=== PATIENT | female | born 1945 | race Caucasian/White ===

== ENCOUNTER 2017-03-20 11:56 | Day surgery (SDC) | payer MEDICARE ==
[2017-03-20] MEDS ORDERED: CEFAZOLIN/Water 2 GM/20 ML SYRINGE ONE (16:30)
[2017-03-20] MEDS ORDERED: Bacitracin Zinc Ointment 30 gm TUBE ONE (17:48)
[2017-03-20] MEDS ORDERED: Sodium Chloride 0.9% 10 ML ONE (17:48)
[2017-03-20] MEDS ORDERED: Bupivacaine PF 0.5% 30 ML VIAL ONE (17:48)
[2017-03-20] MEDS ORDERED: Fentanyl 100 MCG/2 ML VIAL ONE ×2 (17:56→20:23)
[2017-03-20] MEDS ORDERED: Midazolam HCl 2 mg/2 ml Vial ONE (17:56)
[2017-03-20] MEDS ORDERED: Lidocaine 2% PF 10 ML AMP (For Epidural Use) ONE (18:28)
[2017-03-20] MEDS ORDERED: Propofol 200 MG/20 ML VIAL ONE (18:28)
[2017-03-20] MEDS ORDERED: Betamet Acet/Betamet Na Ph 30 MG/5 ML VIAL ONE (18:31)
--- NOTE | 2017-03-22 07:31 | OP ---
DATE OF PROCEDURE: 03/20/2017 PREOPERATIVE DIAGNOSIS: Left carpal tunnel syndrome. POSTOPERATIVE DIAGNOSIS: Left carpal tunnel syndrome. FINDINGS: Very tight transcarpal ligament without hourglass formation, stiffness, or tenosynovitis a nd flexor tendons. PROCEDURE PERFORMED: 1. Carpal tunnel release, left median nerve neuroplasty at the wrist. 2. Application of Celestone drip technique and performed a carpal tunnel injection, 3 mL. ANESTHESIA: General LMA technique by [place] anesthesia augmented about 10 mL 0.5% Marcaine block. Incision around the carpal tunnel release side. Once this was done, prepped and draped in a , and the limb was exsanguinated, tourniquet inflated to 250 mmHg pressure. We made outlined incision around the ring finger and ending at approximately Fortune's cardinal line distally as well as the vol ar wrist. DESCRIPTION OF PROCEDURE: After successful general LMA technique, the limb was prepped and draped. The limb was exsanguinated, tourniquet inflated to 250 mmHg pressure. A timeout was confirmed. The incision was carried as outlined through the skin and subcutaneous tissue, never more proximal th an 5 mm distal to volar wrist flexion crease. We saw the transcarpal ligament and protected all the neurovascular structures medially and laterally. We then visualized the transcarpal ligament, opened it in its midportion and from here proximally opened it with a combination of [place] blade and a cot ton roll blade. The patient then had the incision extended along the transcarpal ligament from the m idportion proximally under direct visualization again using the combination of a [place] blade and a t enotomy scissors. There was excellent freedom around the nerve, which had only a minimal amount of s tippling and mild allograft formation. Celestone was then dripped 3 mL over this area where the nerv e showed changes, the motor branch was intact as well all the other branches, and the tourniquet was deflated. Hemostasis obtained. The wound was then closed with interrupted 4-0 nylon in mattress pat tern and then a bulky dressing was applied only.
== END 2017-03-21 21:30 | disposition home or self-care (01) ==
LOC: SDC 11:56
PROVIDERS: ATTEND Orthopaedic Surgery Hand Surgery
PROC: 01N50ZZ Release Median Nerve, Open Approach (ICD-10-PCS; principal; 2017-03-20)
PROC: 3E0T33Z Introduction of Anti-inflammatory into Peripheral Nerves and Plexi, Percutaneous Approach (ICD-10-PCS; 2017-03-20)
DX: G56.02 Carpal tunnel syndrome, left upper limb (principal); M24.50 Contracture, unspecified joint; I10 Essential (primary) hypertension; R42 Dizziness and giddiness; M19.90 Unspecified osteoarthritis, unspecified site; G43.909 Migraine, unspecified, not intractable, without status migrainosus; J98.6 Disorders of diaphragm; F41.9 Anxiety disorder, unspecified; Z79.899 Other long term (current) drug therapy; Z99.81 Dependence on supplemental oxygen; Z88.5 Allergy status to narcotic agent; Z88.2 Allergy status to sulfonamides; Z88.8 Allergy status to other drugs, medicaments and biological substances; Z98.1 Arthrodesis status; Z96.653 Presence of artificial knee joint, bilateral; Z96.1 Presence of intraocular lens; Z90.49 Acquired absence of other specified parts of digestive tract; Z90.710 Acquired absence of both cervix and uterus; Z98.890 Other specified postprocedural states
CPT/HCPCS: 96374; A4216; J0702; J2001; J2250; J2704; J3010; J3490; S0020

== ENCOUNTER 2018-04-22 09:31 | Outpatient (CLI) | payer MEDICARE ==
--- NOTE | 2018-04-22 14:59 | CT ---
CT ABDOMEN AND PELVIS WITH IV CONTRAST: Technique: Multiple contiguous axial images were obtained through the abdomen and pelvis with IV enha ncement. Oral contrast was administered. Indications: Abdominal pain. Epigastric pain. Nausea. Vomiting. Diarrhea. Comparison: CT abdomen/pelvis 08-01-16. FINDINGS: Images through the lung bases again reveal numerous tiny pulmonary nodules. This has been described p reviously and appears stable. Liver, spleen, and pancreas unremarkable. Patient is post cholecystectomy. Bowel ducts appear normal. There is a fixed diaphragmatic hernia with portion of the stomach above the diaphragm. Bilateral adrenal nodules have been previously described in this patient. These appear stable and hav e been described on the prior exam as stable from 2015. Kidneys unremarkable. Tiny low density foci in both kidneys are subcentimeter and too small to charac terize, most likely tiny cortical cysts. Urinary bladder unremarkable. Small bowel loops are normal caliber and appear unremarkable. Colon unr emarkable. Scattered diverticula in the sigmoid and evidence of mild mural thickening in the sigmoid. This should be evaluated with elective colonoscopy. Aorta normal caliber with atherosclerotic change. No evidence of adenopathy. Osseous structures unremrakble with degenerative spine change. IMPRESSION: 1. Moderate sized fixed diaphragmatic hernia with portion of stomach above the diaphragm. This is sli ghtly larger than on 08-01-16 and probable relates to patient's epigastric pain. 2. Bilateral adrenal nodules remain stable. 3. Numerous tiny low density foci in the kidneys, probably cysts but too small to characterize. 4. Scattered diverticula in the sigmoid and evidence of mild mural thickening in the sigmoid. Recomme nd elective colonoscopy. POS: [facility]
== END 2018-04-22 09:32 | disposition home or self-care (01) ==
LOC: BICCT 09:31
PROVIDERS: ATTEND Internal Medicine Gastroenterology
DX: R10.84 Generalized abdominal pain (principal); R10.13 Epigastric pain; R11.2 Nausea with vomiting, unspecified; R19.7 Diarrhea, unspecified; K44.9 Diaphragmatic hernia without obstruction or gangrene; E27.9 Disorder of adrenal gland, unspecified; R93.421 Abnormal radiologic findings on diagnostic imaging of right kidney; R93.422 Abnormal radiologic findings on diagnostic imaging of left kidney; K57.30 Diverticulosis of large intestine without perforation or abscess without bleeding; K63.89 Other specified diseases of intestine
CPT/HCPCS: 74177

== ENCOUNTER 2018-04-26 12:43 | Day surgery (SDC) | payer MEDICARE ==
[2018-04-25 13:38] VITALS: BMI 34.3
[~2018-04-26 12:43] MED LIST: PROPOFOL 200 MG/20 ML VIAL ONE
--- NOTE | 2018-04-26 20:55 | OP ---
DATE OF PROCEDURE: 04/26/2018 PROCEDURE PERFORMED: Esophagogastroduodenoscopy with biopsy. PREMEDICATION GIVEN: Given by Anesthesiology Department. PREPROCEDURE DIAGNOSES: 1. Persistent epigastric pain. 2. Gastroesophageal reflux disease. 3. Negative CT except for fixed hiatal hernia. POSTPROCEDURE DIAGNOSES: 1. Fixed hiatal hernia. 2. Moderate antral erythema. 3. Otherwise normal upper endoscopy. DESCRIPTION OF PROCEDURE: Written consents were obtained prior to procedure. After adequate sedation, forward viewing endoscope was advanced down the stomach under direct vision to the second portion of duodenum. Both the second portion and the bulb appeared normal. Pylorus was patent. The gastric antrum, body, fundus, and cardia appeared normal. There was a focal area of diffuse antral erythema noted. Biopsies obtained for H. pylori. Retroflexion showed a fixed hiatal hernia with measuring approximately 6 cm. Gastric fold narrowing was seen at 35 cm. GE junction with Z-line noted at 30 cm. There were some retained gastric contents noted in the hiatal hernia sac. The esophagus was visualized with mucosa appeared normal. The patient tolerated the procedure well. ASSESSMENT: 1. Fixed hiatal hernia. 2. Antral erythema, otherwise normal upper endoscopy. PLAN: 1. Await biopsy results. 2. We will discuss with the patient about surgical correction of her hiatal hernia. Job ID: [id number]
== END 2018-04-26 14:42 | disposition home or self-care (01) ==
LOC: SDC 12:43
PROVIDERS: ATTEND Internal Medicine Gastroenterology
PROC: 0DB68ZZ Excision of Stomach, Via Natural or Artificial Opening Endoscopic (ICD-10-PCS; principal; 2018-04-26)
DX: K29.50 Unspecified chronic gastritis without bleeding (principal); K21.9 Gastro-esophageal reflux disease without esophagitis; K44.9 Diaphragmatic hernia without obstruction or gangrene
CPT/HCPCS: 88305; 88312; J2704

== ENCOUNTER 2018-07-08 12:46 | Outpatient (CLI) | payer MEDICARE ==
--- NOTE | 2018-07-08 14:36 | MRI ---
MRI CERVICAL SPINE WITHOUT CONTRAST: Date: 07/08/18 HISTORY: M54.12 cervical radiculopathy. COMPARISON: CT cervical spine from 2015. FINDINGS: Cerebellar tonsils are at the level of the foramen magnum. Cord signal is normal. There is ACDF hardw are at C4-C6. No cervical adenopathy. Paraspinal musculature is symmetric. No marrow infiltrative pro cess. Levels are as follows: C2-3: Mild disc desiccation. No neural foraminal or spinal canal narrowing. C3-4: Some broad based posterior disc osteophyte complex. There is moderate ligamentum flavum hypert rophy. Narrowing of the ventral CSF space. Spinal canal measures approximately 7.0 mm. Moderate right and mild left facet arthrosis. There is moderate left and mild right-sided neural foraminal narrowing. C4-5: Prior diskectomy. There is a broad based posterior osteophyte narrowing the ventral CSF space. No significant neural foraminal narrowing. The spinal canal measures approximately 9.0 mm. C5-6: There is a broad based central osteophyte with narrowing of the ventral CSF space. Spinal artur l measures approximately 8.0 mm. Moderate to severe left and moderate right-sided neural foraminal na rrowing. C6-7: Broad based posterior osteophyte. There is narrowing of the spinal canal to approximately 7.0 mm. Moderate left and right-sided neural foraminal narrowing. IMPRESSION: Multilevel spondylosis, worst at C5-6 and C6-7 due to posterior osteophytes. POS: [facility]
== END 2018-07-08 12:47 | disposition home or self-care (01) ==
LOC: BICMRI 12:46
PROVIDERS: ATTEND Nurse Practitioner Family
DX: M47.22 Other spondylosis with radiculopathy, cervical region (principal); M25.78 Osteophyte, vertebrae
CPT/HCPCS: 72141

== ENCOUNTER → 2018-08-15 | Day surgery (SDC) | payer MEDICARE | LOC: ENDO/OP 07:38 | PROVIDERS: ATTEND Surgery | DX: K44.9 Diaphragmatic hernia without obstruction or gangrene (principal); K21.9 Gastro-esophageal reflux disease without esophagitis; I10 Essential (primary) hypertension; Z88.5 Allergy status to narcotic agent; Z88.8 Allergy status to other drugs, medicaments and biological substances; Z79.899 Other long term (current) drug therapy | CPT/HCPCS: 91010 ==

== ENCOUNTER 2018-09-05 11:18 | Outpatient (CLI) | payer MEDICARE ==
[2018-09-05 13:30] LABS: #Basophils 0.1 thou/uL (0.0-0.2); #Eosinphils 0.1 thou/uL (0.0-0.7); #Lymphocytes 1.8 thou/uL (1.20-3.40); #Monocytes 0.4 thou/uL (0.11-0.59); #Neutrophils 2.3 thou/uL (1.40-6.50); %Basophils 1.1 % (0.0-1.0); %Eosinophils 2.7 % (0.0-10.0); %Lymphocytes 38.9 % (21.0-51.0); %Monocytes 7.9 % (0.0-10.0); %Neutrophils 49.3 % (42.0-75.0); Hemoglobin 13.7 g/dL (12.0-16.0); Mean Corpuscular HGB CONC 30.7 g/dL (32.0-36.0); Mean Corpuscular Hemoglobin 29.4 pg (27.0-31.0); Mean Corpuscular Volume 95.7 fL (78.0-98.0); Mean Platelet Volume 9.1 fL (7.4-10.4); Platelet Count 133 thou/uL (130-400); RBC Distribution Width 12.8 % (11.5-14.5); Red Blood Cell (RBC) Count 4.66 mill/uL (4.20-5.40); White Blood Cell (WBC) Count 4.7 thou/uL (4.8-10.8)
[2018-09-05 14:02] LABS: ALT (SGPT) 12 U/L (8-55); AST (SGOT) 15 U/L (5-34); Albumin 3.9 g/dL (3.4-4.8); Alkaline Phosphatase 67 U/L (40-150); Anion Gap 8 mmol/L (10-20); BUN (Urea Nitrogen) 13 mg/dL (9.8-20.1); Bilirubin, Total 0.3 mg/dL (0.2-1.2); Calc. Creatinine Clearance 0 mL/min (70-130); Calcium 10.3 mg/dL (7.8-10.44); Carbon Dioxide 34 mmol/L (23-31); Chloride 101 mmol/L (98-107); Estimated GFR-MDRD 82; Globulin 3.3 g/dL (2.4-3.5); Glucose 81 mg/dL (83-110); Potassium 3.7 mmol/L (3.5-5.1); Protein, Total 7.2 g/dL (6.0-8.3); Sodium 139 mmol/L (136-145)
== END 2018-09-05 11:19 | disposition home or self-care (01) ==
LOC: LABBT 11:18
PROVIDERS: ATTEND Surgery
DX: Z01.818 Encounter for other preprocedural examination (principal); K44.9 Diaphragmatic hernia without obstruction or gangrene
CPT/HCPCS: 80053; 85025; 93005; 93010

== ENCOUNTER 2018-09-11 08:57 | Inpatient (IN) | payer MEDICARE ==
[2018-09-05 11:53] VITALS: BMI 32.9
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
[2018-09-11] MEDS ORDERED: Lidocaine 2% Jelly 5 ML TUBE ONE (10:48)
[2018-09-11] MEDS ORDERED: Fentanyl 100 MCG/2 ML VIAL ONE ×4 (10:48→15:22)
[2018-09-11] MEDS ORDERED: Bupivacaine/Epinephrine 0.25% 30 ML VIAL ONE (10:55)
[2018-09-11] MEDS ORDERED: hydrALAZINE 20 MG/ML VIAL SLOW IVP PRN (14:00)
[2018-09-11] MEDS ORDERED: Hydrocodone-Acetamin 15 ML UDCUP PO PRN (14:00)
[2018-09-11] MEDS ORDERED: Promethazine HCl 25 MG/ML VIAL IM PRN ×3 (14:00→15:04)
[2018-09-11] MEDS ORDERED: Dextrose 50% Abboject 50 ML SYRINGE SLOW IVP PRN (14:00)
[2018-09-11] MEDS ORDERED: Ondansetron PF 4 MG/2 ML Vial IVP PRN ×2 (14:00→15:04)
[2018-09-11] MEDS ORDERED: Dextrose 5% in Water 1,000 ML IV PRN (14:00)
[2018-09-11] MEDS ORDERED: diphenhydrAMINE 50 MG/ML VIAL IVP PRN ×2 (14:00→15:04)
[2018-09-11] MEDS ORDERED: Ondansetron HCl/PF 4 MG/2 ML Vial IVP PRN (14:07)
[2018-09-11] MEDS ORDERED: Promethazine HCl 25 MG/ML VIAL SLOW IVP PRN (14:07)
[2018-09-11] MEDS ORDERED: Sodium Chloride 0.9% (PF) 10 ML VIAL FS PRN (14:30)
[2018-09-11] MEDS ORDERED: Promethazine HCl 25 MG/ML VIAL ONE (14:38)
[2018-09-11] MEDS ORDERED: diphenhydrAMINE 50 MG/ML VIAL IM PRN (15:04)
[2018-09-11] MEDS ORDERED: diphenhydrAMINE 25 MG CAP PO PRN (15:04)
[2018-09-11] MEDS ORDERED: fentaNYL Citrate/PF 2,000 MCG in Sodium Chloride 0.9% 60 ML IV PRN (15:04)
[2018-09-11] MEDS ORDERED: Naloxone HCl 0.4 mg/ml Vial IV PRN (15:04)
[2018-09-11] MEDS ORDERED: Zolpidem Tartrate 5 MG TAB PO PRN (15:04)
[2018-09-11] MEDS ORDERED: Communication Order-Pharmacy FS SCH (15:15)
[2018-09-11] MEDS ORDERED: ePHEDrine 50 MG/ML VIAL ONE (16:22)
[2018-09-11] MEDS ORDERED: Succinylcholine Chloride 20 MG/ML 10 ml SYRINGE FS ONE (16:22)
[2018-09-11] MEDS ORDERED: Lidocaine 1% PF 5 ML VIAL ONE (16:22)
[2018-09-11] MEDS ORDERED: Dexamethasone 20 MG/5 ML VIAL ONE (16:22)
[2018-09-11] MEDS ORDERED: PHENYLEPHRINE-NS 100 MCG/ML 10 ML SYRINGE ONE (16:22)
[2018-09-11] MEDS ORDERED: Ondansetron PF 4 MG/2 ML Vial ONE (16:22)
[2018-09-11] MEDS ORDERED: Glycopyrrolate 0.2 MG/ML 5 ML SYRINGE ONE (16:22)
[2018-09-11] MEDS ORDERED: Rocuronium Bromide 10 MG/ML (10ML VIAL) ONE (16:22)
[2018-09-11] MEDS ORDERED: PROPOFOL 200 MG/20 ML VIAL ONE (16:22)
[2018-09-11] MEDS: D5 1/2 NS w/20 mEq KCL 1,000 ML IV SCH ×2 (17:12→21:32)
[2018-09-11] MEDS: CEFAZOLIN 2 GM in Premix Bag 1 BAG IVPB SCH (17:12)
[2018-09-11] MEDS ORDERED: Sodium Chloride 0.9% 500 ML IVPB SCH (19:00)
[2018-09-11 19:33] LABS: #Basophils 0.1 thou/uL (0.0-0.2); #Lymphocytes 0.6 thou/uL (1.20-3.40); #Monocytes 0.7 thou/uL (0.11-0.59); #Neutrophils 14.1 thou/uL (1.40-6.50); %Basophils 0.5 % (0.0-1.0); %Eosinophils 0.1 % (0.0-10.0); %Lymphocytes 3.7 % (21.0-51.0); %Monocytes 4.7 % (0.0-10.0); %Neutrophils 91.1 % (42.0-75.0); Hemoglobin 13.8 g/dL (12.0-16.0); Mean Corpuscular HGB CONC 31.3 g/dL (32.0-36.0); Mean Corpuscular Volume 99.1 fL (78.0-98.0); Mean Platelet Volume 9.5 fL (7.4-10.4); Platelet Count 120 thou/uL (130-400); RBC Distribution Width 12.6 % (11.5-14.5); Red Blood Cell (RBC) Count 4.44 mill/uL (4.20-5.40); White Blood Cell (WBC) Count 15.4 thou/uL (4.8-10.8)
--- NOTE | 2018-09-11 20:11 | PRG ---
DATE OF SERVICE: 09/11/2018 SUBJECTIVE: Called to see the patient for tachycardia. She was up around 116, which is new for her. The patient states that she is having excruciating back pain. She has chronic back pain. She sees Pain Management for. She has some mild nausea, no vomiting. OBJECTIVE: VITAL SIGNS: Blood pressure is 125/69. GENERAL: She is fairly lethargic. ABDOMEN: Soft, nondistended. PLAN: We did an EKG and it showed it was sinus tach. We will get a hospitalist consult and check H and H. Job ID: [id number]
[2018-09-12] MEDS: CEFAZOLIN 2 GM in Premix Bag 1 BAG IVPB SCH (02:17)
[2018-09-12 06:10] LABS: #Lymphocytes 1.1 thou/uL (1.20-3.40); #Monocytes 1.1 thou/uL (0.11-0.59); #Neutrophils 11.7 thou/uL (1.40-6.50); %Eosinophils 0.3 % (0.0-10.0); %Lymphocytes 7.6 % (21.0-51.0); %Monocytes 7.8 % (0.0-10.0); %Neutrophils 84.4 % (42.0-75.0); Hemoglobin 13.7 g/dL (12.0-16.0); Mean Corpuscular HGB CONC 31.8 g/dL (32.0-36.0); Mean Corpuscular Hemoglobin 30.7 pg (27.0-31.0); Mean Corpuscular Volume 96.5 fL (78.0-98.0); Mean Platelet Volume 9.1 fL (7.4-10.4); Platelet Count 113 thou/uL (130-400); RBC Distribution Width 12.6 % (11.5-14.5); Red Blood Cell (RBC) Count 4.48 mill/uL (4.20-5.40); White Blood Cell (WBC) Count 13.8 thou/uL (4.8-10.8)
[2018-09-12 06:27] LABS: Anion Gap 14 mmol/L (10-20); BUN (Urea Nitrogen) 9 mg/dL (9.8-20.1); Calc. Creatinine Clearance 86 mL/min (70-130); Calcium 9.1 mg/dL (7.8-10.44); Carbon Dioxide 26 mmol/L (23-31); Chloride 103 mmol/L (98-107); Estimated GFR-MDRD 87; Glucose 138 mg/dL (83-110); Potassium 3.9 mmol/L (3.5-5.1); Sodium 139 mmol/L (136-145)
[2018-09-12] MEDS: D5 1/2 NS w/20 mEq KCL 1,000 ML IV SCH ×2 (07:42→13:16)
--- NOTE | 2018-09-12 08:59 | RAD ---
Exam: 15 mL Gastrografin swallow HISTORY: Status post gastric bypass, vertical sleeve. COMPARISON: None FINDINGS: Patient was administered 15 cc of Gastrografin which passes without delay from the esophagu s into the stomach. Postprocedure supine and upright radiographs do not demonstrate any leak or extravasation. Contrast opacifies the proximal small bowel. IMPRESSION: No leak or extravasation.
[2018-09-12] MEDS ORDERED: Pantoprazole 40 MG VIAL IVP SCH (09:00)
[2018-09-12] MEDS ORDERED: Enoxaparin Sodium 30 MG/0.3 ML SYRINGE SC SCH (09:00)
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
[2018-09-12] MEDS: Hydrocodone-Acetamin 15 ML UDCUP PO PRN ×2 (10:47→14:18)
--- NOTE | 2018-09-12 11:46 | PDOC.FPRHP ---
- Allergies/Adverse Reactions Allergies Allergy/AdvReac Type Severity Reaction Status Date / Time pregabalin [From Lyrica] Allergy Verified 09/05/18 11:55 Tqyuwrd-Rvn-Dos Reductase Allergy Verified 09/05/18 11:55 Inhibitor - Home Medications Medication Instructions Recorded Confirmed Type Calcium Carb/Vit D3/Minerals 600 mg PO BID 10/21/13 09/05/18 History [Calcium 1,200 mg Chewable Tablet] Cholecalciferol (Vitamin D3) 2,000 unit PO DAILY 10/21/13 09/05/18 History [Vitamin D3] Dicyclomine HCl 20 mg PO TID 10/21/13 09/05/18 History Pantoprazole Sodium 1 tab PO BID 10/21/13 09/05/18 History Fish Oil 1,000 mg PO BID 06/17/14 09/05/18 History Gabapentin 1 tab PO TID 05/25/16 09/05/18 History FLUoxetine HCl [Fluoxetine HCl] 10 mg PO ASDIR PRN 04/25/18 09/11/18 History Losartan Potassium [Cozaar] 50 mg PO HS 04/25/18 09/05/18 History Primidone 0.5 tab PO BID 04/25/18 09/05/18 History traZODone HCl [Desyrel] 50 mg PO HS 04/25/18 09/05/18 History Imipramine HCl 1 tab PO HS 09/05/18 09/05/18 History - History PMHx: PSHx: FHx: Social: - Vital signs BP: [] HR: [] RR: [] Tmax: [] Pox: []% on [] Wt: [] FMR H&P: Results - Labs Result Diagrams: 09/12/18 05:53 09/12/18 05:53 Lab results: WBC 13.8 thou/uL (4.8-10.8) H 09/12/18 05:53 Hgb 13.7 g/dL (12.0-16.0) 09/12/18 05:53 Hct 43.2 % (36.0-47.0) 09/12/18 05:53 MCV 96.5 fL (78.0-98.0) 09/12/18 05:53 Plt Count 113 thou/uL (130-400) L 09/12/18 05:53 Neutrophils % 84.4 % (42.0-75.0) H 09/12/18 05:53 Sodium 139 mmol/L (136-145) 09/12/18 05:53 Potassium 3.9 mmol/L (3.5-5.1) 09/12/18 05:53 Chloride 103 mmol/L (98-107) 09/12/18 05:53 Carbon Dioxide 26 mmol/L (23-31) 09/12/18 05:53 BUN 9 mg/dL (9.8-20.1) L 09/12/18 05:53 Creatinine 0.66 mg/dL (0.6-1.1) 09/12/18 05:53 Glucose 138 mg/dL (83-110) H 09/12/18 05:53 Calcium 9.1 mg/dL (7.8-10.44) 09/12/18 05:53 FMR H&P: Upper Level - Plan Date/Time: 09/12/18 1144 I, [], have evaluated this patient and agree with findings/plan as outlined by compensation intern resident. Pertinent changes/additions are listed here.
[2018-09-12] MEDS ORDERED: FLUoxetine HCl 10 MG CAP PO PRN (11:48)
[2018-09-12] MEDS ORDERED: Gabapentin 300 MG CAP PO SCH (15:00)
[2018-09-12] MEDS ORDERED: Dicyclomine 20 MG TAB PO SCH (15:00)
[2018-09-12 16:23] VITALS: BP 120/51; TEMP 98.1
--- NOTE | 2018-09-12 17:10 | CON ---
DATE OF CONSULTATION: 09/12/2018 CONSULTING PROVIDER: Jose Bucio MD, General Surgery. REASON FOR CONSULTATION: Medical management. HISTORY OF PRESENT ILLNESS: The patient is a 73-year-old female, who is postop day 1 status post Bladimir fundoplication for hiatal hernia. The patient currently reports she has episodic pain; however, it is fairly well controlled. She has a past medical history significant for hypertension, depression, insomnia, and she recently had an echo by her cash applications clerk, Dr. William; however, the results of this are unknown. She is on spironolactone and hydrochlorothiazide, which would presume to be for blood pressure versus diastolic failure; however, she is unaware of any cardiomyopathy in the past. Otherwise, she does see Pain Management for chronic neck pain and back pain. 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 She currently denies any chest pain, shortness of breath, nausea, vomiting, diarrhea, or constipation. She is tolerating clear liquids per General Surgery's diet and recommendation and is otherwise feeling okay. REVIEW OF SYSTEMS: GENERAL: The patient denies fever or chills. ENT: No rhinorrhea or congestion. RESPIRATORY: No cough, congestion, or shortness of breath. CARDIOVASCULAR: No chest pain, palpitations, or increasing edema. GI: The patient reports some occasional abdominal pain. She is status post Bladimir fundoplication. Denies nausea or vomiting. Tolerating p.o. SKIN: No rashes, lesions. MUSCULOSKELETAL: The patient denies pain, tenderness, or swelling. NEUROLOGIC: The patient denies numbness or weakness. PHYSICAL EXAMINATION: VITAL SIGNS: The patient is afebrile. Temperature is 97.7, pulse is 87, respiratory rate is 18, pulse ox is 95% on 3 L nasal cannula, blood pressure is 135/77. CONSTITUTIONAL: The patient is in no acute distress. She is resting comfortably in bed. HEENT: Normocephalic, atraumatic. Pupils equal, round, reactive to light and accommodation. Extraocular muscles intact. NECK: Supple. Trachea midline. No JVD. No lymphadenopathy. CHEST: Equal rise and fall. No paradoxical breathing. HEART: Regular rate and rhythm. Normal S1, S2. No murmurs, rubs, or gallops. LUNGS: Clear to auscultation bilaterally. No respiratory distress. The patient has good air movement. No wheezing, rales, or rhonchi present. ABDOMEN: Soft. Diffusely mildly tender to palpation. No rebound, guarding, or rigidity. NEUROLOGIC: The patient has grossly normal range of motion. The patient has no focal deficit. LABORATORY RESULTS: The patient had a CBC and a BMP drawn today. The CBC was significant for white blood cell count of 13.8; however, she is postop day 1. This is likely secondary to that. Her platelets are 113. Basic metabolic profile was unremarkable. She did have a glucose of 138. Her BUN is 9 and creatinine is 0.66 with an estimated GFR of 87. The patient had an upper GI series this morning without contrast, which showed no leak or extravasation status post Bladimir fundoplication. 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 1. Status post Bladimir fundoplication, managed per Surgery's recommendations. Pain control per Surgery. 2. Hypertension. If the patient is on losartan at home as well as hydrochlorothiazide and spironolactone, we will verify spironolactone and thiazide dosage, we will resume the bp medication once verified and BP stable. 3. History of depression. Continue at bedtime trazodone and daily fluoxetine. 4. History of gastroesophageal reflux disease. Continue Protonix 40 mg daily. 5. Right hemidiaphragm paralysis. Continue O2 supplementation p.r.n. Consider incentive spirometry and early ambulation. Thank you for this consultation. We will continue to follow the patient while she remains in the hospital. Job ID: [id number] I personally saw and exmined the patient on 09/12/18 and discussed with patient with Dr Carrion. I agree with the History, Physical, assessment and plan. KINJAL
[2018-09-12] MEDS ORDERED: traZODone HCl 50 MG TAB PO SCH (21:00)
[2018-09-12] MEDS ORDERED: Primidone 250 MG TAB PO SCH (21:00)
[2018-09-12] MEDS ORDERED: Calcium Carbonate + Vit D 1 TAB PO SCH (21:00)
[2018-09-12] MEDS ORDERED: Fish Oil 1,000 MG CAP PO SCH (21:00)
--- NOTE | 2018-09-13 10:27 | DIS ---
DATE OF ADMISSION: 09/11/2018 DATE OF DISCHARGE: 09/12/2018 DISCHARGE DIAGNOSES: 1. Large paraesophageal hiatal hernia. 2. Multiple adhesions. PROCEDURES DURING ADMISSION: Laparoscopic paraesophageal hiatal hernia repair, intraoperative esophagogastroscopy, postoperative Gastrografin swallow. HOSPITAL COURSE: The patient was admitted, taken to the operating room where she underwent a hiatal hernia repair. Postoperatively, she has done well. X-ray was fine. She was started on liquids. She is tolerating it well. Pain is controlled on p.o. medications. She is discharged home on hydrocodone and Zofran. She will follow up with me in 2 weeks. She will stay on a liquid diet for 2 weeks, then soft diet for 2 weeks, then regular food. Job ID: [id number]
== END 2018-09-12 18:38 | disposition home or self-care (01) | DRG 328 ==
LOC: SDC 08:57 → SURG A 15:48
PROVIDERS: ADMIT Surgery; ATTEND Surgery
PROC: 0BQT4ZZ Repair Diaphragm, Percutaneous Endoscopic Approach (ICD-10-PCS; principal; 2018-09-11)
PROC: 0DV44ZZ Restriction of Esophagogastric Junction, Percutaneous Endoscopic Approach (ICD-10-PCS; 2018-09-11)
PROC: 0DJ68ZZ Inspection of Stomach, Via Natural or Artificial Opening Endoscopic (ICD-10-PCS; 2018-09-11)
DX: K44.9 Diaphragmatic hernia without obstruction or gangrene (principal); I10 Essential (primary) hypertension; F32.9 Major depressive disorder, single episode, unspecified; G47.00 Insomnia, unspecified; K21.9 Gastro-esophageal reflux disease without esophagitis; G83.9 Paralytic syndrome, unspecified; Z96.653 Presence of artificial knee joint, bilateral; Z90.49 Acquired absence of other specified parts of digestive tract; Z90.710 Acquired absence of both cervix and uterus; Z98.1 Arthrodesis status; Z98.890 Other specified postprocedural states; Z88.8 Allergy status to other drugs, medicaments and biological substances
CPT/HCPCS: 36415; 74241; 80048; 85025; 93005; 93010; C9113; J0360; J0690; J1100; J1650; J2001; J2405; J2550; J2704; J3010; J3490

== ENCOUNTER 2018-09-14 22:37 | Observation (INO) | payer MEDICARE ==
[~2018-09-14 22:37] MED LIST changes: +ISOVUE-370 76%-LOCM 1 ML ONE; -PROPOFOL 200 MG/20 ML VIAL ONE
--- NOTE | 2018-09-14 23:22 | RAD ---
Exam: Chest one view HISTORY:Recent gastric bariatric surgery. Pain. Comparison: 01/02/2015 FINDINGS: Cardiac silhouette:Upper normal Pulmonary vessels: Prominent Costophrenic angles: Clear LUNGS: Diminished lung volumes suggesting atelectasis. Superimposed infiltrate cannot be excluded. Pneumothorax: None Osseous abnormalities: None IMPRESSION: 1. Diminished lung volumes, likely due to a poor inspiratory effort. Superimposed infiltrate/atelecta sis cannot be excluded. Continued surveillance is recommended.
[2018-09-14] MEDS ORDERED: Fentanyl 100 MCG/2 ML VIAL ONE (23:35)
[2018-09-14] MEDS ORDERED: Ondansetron PF 4 MG/2 ML Vial ONE (23:35)
[2018-09-14 23:46] LABS: #Lymphocytes 1.1 thou/uL (1.20-3.40); #Monocytes 0.6 thou/uL (0.11-0.59); #Neutrophils 8.4 thou/uL (1.40-6.50); %Basophils 0.2 % (0.0-1.0); %Eosinophils 0.2 % (0.0-10.0); %Lymphocytes 10.6 % (21.0-51.0); %Monocytes 6.3 % (0.0-10.0); %Neutrophils 82.7 % (42.0-75.0); Hemoglobin 13.6 g/dL (12.0-16.0); Mean Corpuscular HGB CONC 32.8 g/dL (32.0-36.0); Mean Corpuscular Hemoglobin 31.4 pg (27.0-31.0); Mean Corpuscular Volume 95.9 fL (78.0-98.0); Mean Platelet Volume 9.4 fL (7.4-10.4); Platelet Count 156 thou/uL (130-400); RBC Distribution Width 12.6 % (11.5-14.5); Red Blood Cell (RBC) Count 4.33 mill/uL (4.20-5.40); White Blood Cell (WBC) Count 10.1 thou/uL (4.8-10.8)
[2018-09-15 00:06] LABS: ALT (SGPT) 50 U/L (8-55); AST (SGOT) 26 U/L (5-34); Albumin 3.5 g/dL (3.4-4.8); Alkaline Phosphatase 112 U/L (40-150); Anion Gap 13 mmol/L (10-20); BUN (Urea Nitrogen) 14 mg/dL (9.8-20.1); Bilirubin, Total 2.9 mg/dL (0.2-1.2); Calc. Creatinine Clearance 0 mL/min (70-130); Carbon Dioxide 27 mmol/L (23-31); Chloride 94 mmol/L (98-107); Estimated GFR-MDRD 72; Globulin 3.6 g/dL (2.4-3.5); Glucose 144 mg/dL (83-110); Lipase Less than 4 U/L (8-78); Potassium 3.6 mmol/L (3.5-5.1); Protein, Total 7.1 g/dL (6.0-8.3); Sodium 130 mmol/L (136-145)
--- NOTE | 2018-09-15 00:20 | CT ---
EXAM: CT ABDOMEN AND PELVIS HISTORY: Hernia surgery on Sunday. Tachycardia. Tachypnea. Diffuse abdominal tenderness. Status po st gastric sleeve. Bypass surgery. COMPARISON: 04/22/2018 Procedure: Multiple contiguous axial images were obtained and a CT of the abdomen and pelvis with IV contrast. C oronal reformats were performed. FINDINGS: Lower Chest: Small bilateral pleural effusions. Bibasilar consolidation likely due to atelectasis, as piration or pneumonia. Vessels: Visualized aorta has a normal caliber. Heart size is within normal limits Abdomen: Portal vein:Patent Gallbladder: Surgically absent Liver: within normal limits. Pancreas: within normal limits. Spleen: Appropriate enhancement of the spleen. However, there is perisplenic fluid. Adrenals: Stable adrenal nodularity, bilaterally Kidneys: Symmetric enhancement. Bilaterally no obstructive uropathy. Hypodensity in the upper pole th e right kidney cannot be further characterize. Peritoneum: Small foci of free air in the abdomen are noted are presumed to be iatrogenic. There is a small amount of perisplenic free fluid. No mass, lymphadenopathy. Bowel: Limited evaluation due to technique. There is mild distention of the stomach. Multiple fluid-f illed loops of mildly prominent small bowel are identified which may represent a ileus. Early, developing obstruction cannot be excluded. Ileocecal junction appears to be within normal limits. The re is contrast throughout the colon. Occasional diverticulum. No diverticulitis. Appendix is not appreciated. No inflammation at the cecal apex. Previously noted hiatal hernia is not appreciated, co mpatible with hernia repair. Mesentery and Retroperitoneum: No enlarged mesenteric or retroperitoneal lymph nodes. Abdominal Wall: Subcutaneous emphysema is noted, likely iatrogenic. Pelvis: Reproductive Organs: Hysterectomy changes are identified. Pelvis there is a small amount of free fluid in the pelvis. Bladder: within normal limits. Bones: No lytic or blastic lesions. IMPRESSION: 1. Findings compatible with previous hernia repair. 2. There does not appear to be suture chain compatible with bariatric surgery. Correlate clinically. 3. Small bilateral effusions with lung parenchymal changes as described above. 4. Nonspecific perisplenic fluid, which may be postoperative. 5. Fluid-filled small bowel loops, possibly due to ileus or developing/partial small bowel junction. Continued surveillance. Consider general surgical consultation.
[2018-09-15 00:55] LABS: Bilirubin Small (Negative); Blood, Urine Negative (Negative); Clarity CLEAR (Clear); Glucose, Urine (Dipstick) Negative (Negative); Leukocyte Negative (Negative); Nitrite Negative (Negative); Protein, Urine (Dipstick) Negative (Neg-Trace); Specific Gravity, Urine 1.025 (1.002-1.036); Urobilinogen 0.2 mg/dL (0.2-1.0); pH, Urine 6.5 (5.0-9.0)
[2018-09-15] MEDS ORDERED: Fentanyl 100 MCG/2 ML VIAL ONE (01:36)
[2018-09-15] MEDS ORDERED: Ondansetron PF 4 MG/2 ML Vial IVP PRN (03:04)
[2018-09-15] MEDS ORDERED: Ondansetron ODT 4 MG TAB SL PRN (03:04)
[2018-09-15] MEDS ORDERED: Acetaminophen 325 MG TAB PO PRN (03:04)
[2018-09-15] MEDS ORDERED: Fentanyl 100 MCG/2 ML VIAL SLOW IVP PRN (03:05)
[2018-09-15] MEDS ORDERED: Sodium Chloride 0.9% 1,000 ML IV SCH (03:15)
[2018-09-15 04:24] VITALS: BMI 39.0
[2018-09-15] MEDS ORDERED: Furosemide 40 MG/4 ML VIAL SLOW IVP SCH ×2 (12:45→18:00)
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
[2018-09-15 17:48] LABS: Troponin I 0.018 ng/mL (< 0.028)
[2018-09-15] MEDS ORDERED: Enoxaparin Sodium 40 MG/0.4 ML SYRINGE SC SCH (19:30)
[2018-09-15] MEDS: Primidone 250 MG TAB PO SCH (20:36)
[2018-09-15] MEDS: Dicyclomine 10 MG CAP PO SCH (20:37)
[2018-09-15] MEDS: Gabapentin 300 MG CAP PO SCH (20:37)
[2018-09-15] MEDS: Losartan 25 MG TAB PO SCH (20:38)
[2018-09-15] MEDS: Calcium Carbonate + Vit D 1 TAB PO SCH (20:38)
[2018-09-15 21:22] LABS: Troponin I 0.021 ng/mL (< 0.028)
[2018-09-16 00:16] LABS: Troponin I 0.021 ng/mL (< 0.028)
[2018-09-16] MEDS: Acetaminophen 325 MG TAB PO PRN (02:07)
[2018-09-16] MEDS ORDERED: NS / Oxytocin 40 units/1000ml 1,000 ML IV PRN (03:59)
[2018-09-16] MEDS ORDERED: Lidocaine 1% (PF) 30 ML VIAL SC PRN (03:59)
[2018-09-16] MEDS ORDERED: Lactated Ringer's 1,000 ML IV SCH (04:15)
[2018-09-16] MEDS ORDERED: NS w/ Oxytocin 10 units 500 ML IV SCH (04:15)
--- NOTE | 2018-09-16 07:03 | ULT ---
DOPPLER VENOUS ULTRASOUND OF BOTH LOWER EXTREMITIES: INDICATIONS: Bilateral lower extremity edema. TECHNIQUE: Ordoñez-scale, color Doppler, and vascular duplex with spectral analysis was performed of the deep venou s structures of both lower extremities. The common femoral vein, superficial femoral vein, popliteal vein, posterior tibial vein, proximal greater saphenous, and proximal profunda veins were assessed b ilaterally. FINDINGS: There is normal compression, flow, and augmentation seen within the deep venous structures of both lo wer extremities. IMPRESSION: No evidence of deep venous thrombosis within both lower extremities. POS: BH
[2018-09-16] MEDS ORDERED: Enoxaparin Sodium 40 MG/0.4 ML SYRINGE SC SCH (09:00)
[2018-09-16] MEDS: Furosemide 40 MG/4 ML VIAL SLOW IVP SCH (09:00)
[2018-09-16] MEDS ORDERED: Enoxaparin Sodium 80 MG/0.8 ML SYRINGE SC SCH (09:00)
[2018-09-16] MEDS: Spironolactone 25 MG TAB PO SCH (09:10)
[2018-09-16] MEDS: Calcium Carbonate + Vit D 1 TAB PO SCH ×2 (09:11→21:55)
[2018-09-16] MEDS: Primidone 250 MG TAB PO SCH ×2 (09:11→22:01)
[2018-09-16] MEDS: Gabapentin 300 MG CAP PO SCH ×3 (09:11→21:55)
[2018-09-16] MEDS: Dicyclomine 10 MG CAP PO SCH ×3 (09:11→21:54)
--- NOTE | 2018-09-16 09:56 | PRG ---
DATE OF SERVICE: 09/16/2018 CHIEF COMPLAINT: Constipation. HISTORY OF PRESENT ILLNESS: The patient came in through the emergency room, reporting that she felt like she needed to have a bowel movement and could not. Initially, they thought she might had a partial small bowel obstruction as she just had recent paraesophageal hiatal hernia repair. Since then, she has had like 4 bowel movements. Medicine has evaluated and feels that she is fluid overloaded. She denies dyspnea. PAST MEDICAL HISTORY: Significant for COPD, on home O2; hypertension; vertigo; history of brain tumor. PAST SURGICAL HISTORY: Cholecystectomy, hysterectomy, carpal tunnel surgery, knee arthroscopy, benign meningioma removed in 2004. She has had a cervical laminectomy, bilateral total knee replacement, umbilical hernia repair, and recent laparoscopic paraesophageal hiatal hernia repair. MEDICATIONS: Include; 1. Estradiol. 2. Losartan. 3. Trazodone. 4. Mysoline. 5. Dicyclomine. 6. Calcium. 7. Fish oil. 8. Chlordiazepoxide. 9. Vitamin D. 10. Spironolactone. 11. Pantoprazole. 12. Primidone. 13. Clonidine. 14. Myrbetriq. 15. ProAir. 16. Albuterol. 17. Gabapentin. ALLERGIES: SHE HAS ALLERGIES TO LYRICA CAUSING SWELLING. FAMILY HISTORY: Both parents . Heart disease runs in the family. SOCIAL HISTORY: She is . No tobacco. No alcohol. PHYSICAL EXAMINATION: VITAL SIGNS: Temperature is 98.2, pulse 87, blood pressure 132/77. She has 97% saturations on 2 L of nasal cannula O2. GENERAL: She is awake and alert, does not appear to be in any distress. LUNGS: Clear. HEART: Regular rate and rhythm. ABDOMEN: Obese. Soft. There is some mild ecchymosis, fresh incisions are healing well. No tenderness. No distention. LABORATORY DATA: White count is 10, hemoglobin and hematocrit are 13 and 41, platelet count 156. Electrolytes are sodium is low at 130, chloride 94, glucose 144. Her total bilirubin is elevated at 2.9, but the rest of her liver tests are normal. She had a venogram that is normal. She had a CT scan of the abdomen and pelvis, showing some tiny bit of free air, tiny bit of free fluid, mild distention of the stomach, multiple fluid-filled loops of bowel suggestive of an ileus. ASSESSMENT: Stable. PLAN: Per family practice. Job ID: [id number]
--- NOTE | 2018-09-16 10:32 | PDOC.FM ---
- Subjective Subjective: Pt had an elevated d dimer and vneous duplex was negative. Main complaint is abdominal bloating and some discomfort. She also reports some mild SOB. - Objective MAR Reviewed: Yes Vital Signs & Weight: Vital Signs (12 hours) Temp Pulse Resp BP Pulse Ox 09/16/18 07:25 18 97 09/16/18 07:15 98.2 F 87 18 132/77 97 09/16/18 07:10 97 09/16/18 04:00 98.1 F 103 H 20 129/71 93 L 09/16/18 02:09 96 16 100 09/16/18 00:00 97.5 F L 99 16 125/80 93 L Weight Weight 74.933 kg I&O: 09/15/18 09/16/18 09/17/18 06:59 06:59 06:59 Intake Total 400 400 Output Total 2600 100 Balance 400 -2200 -100 Result Diagrams: 09/14/18 22:56 09/14/18 22:56 Phys Exam - Physical Examination Constitutional: NAD HEENT: PERRLA, sclera anicteric Neck: no JVD Respiratory: no wheezing, no rhonchi scattered rales, diminished lung sounds b/l bases Cardiovascular: RRR, no significant murmur, no rub Gastrointestinal: no distention Musculoskeletal: no edema, pulses present Neurological: non-focal, moves all 4 limbs Skin: no rash Dx/Plan (1) Constipation Code(s): K59.00 - CONSTIPATION, UNSPECIFIED Status: Acute (2) Tachycardia Code(s): R00.0 - TACHYCARDIA, UNSPECIFIED Status: Acute (3) Volume overload Code(s): E87.70 - FLUID OVERLOAD, UNSPECIFIED Status: Acute (4) Chronic respiratory failure with hypoxia Code(s): J96.11 - CHRONIC RESPIRATORY FAILURE WITH HYPOXIA Status: Chronic (5) Hypertension Code(s): I10 - ESSENTIAL (PRIMARY) HYPERTENSION Status: Chronic - Plan Plan: #Probable CHF exacerbation- -Volume overload with tachycardia -Pt received 2L NS in the ER, followed by NS @ 100ml/hr for maintenance, which has been dc/d -Pt has received a total of 80mg IV lasix this pm; recommend continuing 40mg IV tomorrow am, and reevalutaing volume status tomorrow pm; we will monitor her volume status with strict I/O's and daily weights - BNP elevated, troponin negative X3 - echo pending - will continue diuresis with 40 lasix daily and strict IsOs/Daily weights. Suspect diastolic failure given pts medical list #Hiatal hernia s/p repair -per surgery - CL diet Chronic hypoxic respiratory failure 2/2 paralyzed hemidiaphragm- -1-2L O2 NC at baseline -albuterol neb prn - stable #Constipation- -resolved per pt. She has had 4+ bowel movements today - Monitor IsOs - Abd ct c/w ileus - manage per surgery #Htn- -will restart losartan, spironolactone - cont diuresis, monitor Elytes #Urinary incontinence- -home mybetriq #GERD- -will restart pantoprazole #essential tremor -restart primidone #IBS?- -restart dicyclomine #Hx of depression- -pt states she doesn't take medications for this anymore -held fluoxetine, trazodone, librium DVT: Therapuetic lovenox while awaiting CTA results PPI: protonix 40mg PO daily Dispo: Pt stable, given elevated Dimer and SOB will check CTA. Cont diuresis and await echo results. Addendum - Attending - Attending Attestation Date/Time: 09/16/18 2689 I personally evaluated the patient and discussed the management with Dr. Carrion. I agree with the History, Examination, Assessment and Plan documented above with any addition or exceptions noted below.
--- NOTE | 2018-09-16 12:37 | CT ---
CT ANGIOGRAM CHEST WITH 3D RENDERING: HISTORY: Respiratory distress. Cough. Elevated D-dimer. FINDINGS: No convincing CT evidence for acute pulmonary embolism. Some of the smaller branches, more periphera l pulmonary arteries, are less than optimally imaged because of motion. Small bilateral pleural effu sions and pleural-based parenchymal changes, larger in the left lower lobe. Innumerable small pulmon hao nodules, up to approximately 0.5 cm in size. Evidence for recent postop changes in the region of the fundus of the stomach. No evidence for aortic aneurysm or dissection. Perisplenic fluid, nonsp ecific, given recent postoperative change. Evidence for left adrenal adenoma. Stable right adrenal nodularity. No mediastinal mass or adenopathy. IMPRESSION: 1. Small bilateral pleural effusions and pleural-based parenchymal changes, worse in the left base. 2. No convincing CT evidence for acute pulmonary embolism. 3. Innumerable small pulmonary nodules bilaterally, up to approximately 0.5 cm in size 4. Right perisplenic fluid, nonspecific, but stable from CT from 09/15/2018. CODE LN POS: JOAN
--- NOTE | 2018-09-16 17:14 | EKG ---
Test Reason : Blood Pressure : / mmHG Vent. Rate : 094 BPM Atrial Rate : 094 BPM P-R Int : 146 ms QRS Dur : 088 ms QT Int : 364 ms P-R-T Axes : -02 -26 020 degrees QTc Int : 455 ms Normal sinus rhythm Possible Lateral infarct , age undetermined Abnormal ECG When compared with ECG of 11-SEP-2018 18:50, (Unconfirmed) No significant change was found Confirmed by DR. Jeyson NINA ([id number]) on 09/16/2018 5:13:44 PM Referred By: Shanti Strong Confirmed By:DR. Jeyson NINA
[2018-09-16] MEDS: Losartan 25 MG TAB PO SCH (21:56)
[2018-09-17] MEDS: Acetaminophen 325 MG TAB PO PRN (02:39)
[2018-09-17] MEDS: Primidone 250 MG TAB PO SCH (08:07)
[2018-09-17] MEDS: Calcium Carbonate + Vit D 1 TAB PO SCH (08:07)
[2018-09-17] MEDS: Gabapentin 300 MG CAP PO SCH ×2 (08:07→15:19)
[2018-09-17] MEDS: Dicyclomine 10 MG CAP PO SCH ×2 (08:07→15:19)
[2018-09-17] MEDS: Spironolactone 25 MG TAB PO SCH (08:07)
[2018-09-17] MEDS: Furosemide 40 MG/4 ML VIAL SLOW IVP SCH (08:08)
[2018-09-17] MEDS ORDERED: Enoxaparin Sodium 40 MG/0.4 ML SYRINGE SC SCH (09:00)
--- NOTE | 2018-09-17 09:16 | PDOC.FM ---
- Subjective Subjective: APRYL overnight. Pt reports she is feeling better and ready to go home. No CP, SOB , NVDC. Pt having BM. Normal appetite. - Objective Vital Signs & Weight: Vital Signs (12 hours) Temp Pulse Resp BP Pulse Ox 09/17/18 07:26 92 L 09/17/18 07:24 77 20 92 L 09/17/18 07:12 97.7 F 91 18 125/85 96 09/17/18 04:21 98 F 91 16 138/76 94 L 09/17/18 02:19 88 20 96 09/16/18 23:58 98.1 F 90 16 128/74 96 09/16/18 22:46 86 16 93 L Weight Weight 74.933 kg I&O: 09/16/18 09/17/18 09/18/18 06:59 06:59 06:59 Intake Total 400 1000 Output Total 2600 1900 Balance -2200 -900 Result Diagrams: 09/14/18 22:56 09/17/18 08:46 Phys Exam - Physical Examination Constitutional: NAD HEENT: PERRLA, sclera anicteric Neck: no nodes, no JVD Respiratory: no wheezing, no rales, no rhonchi, clear to auscultation bilateral Cardiovascular: RRR, no significant murmur, no rub Gastrointestinal: soft, non-tender, no distention, positive bowel sounds Musculoskeletal: no edema, pulses present Neurological: non-focal, moves all 4 limbs Skin: no rash, cap refill <2 seconds Dx/Plan (1) Constipation Code(s): K59.00 - CONSTIPATION, UNSPECIFIED Status: Acute (2) Tachycardia Code(s): R00.0 - TACHYCARDIA, UNSPECIFIED Status: Acute (3) Volume overload Code(s): E87.70 - FLUID OVERLOAD, UNSPECIFIED Status: Acute (4) Chronic respiratory failure with hypoxia Code(s): J96.11 - CHRONIC RESPIRATORY FAILURE WITH HYPOXIA Status: Chronic (5) Hypertension Code(s): I10 - ESSENTIAL (PRIMARY) HYPERTENSION Status: Chronic - Plan Plan: #Probable CHF exacerbation- -echo normal - fluid status improved - stable from medical standpoint #Hiatal hernia s/p repair -per surgery - CL diet Chronic hypoxic respiratory failure 2/2 paralyzed hemidiaphragm- -at baseline, stable for DC #Constipation- -resolved per pt. She has had 4+ bowel movements today - per surgery #Htn- -recheck BMP - cont home meds - ok for DC #Urinary incontinence- -home mybetriq #GERD- -will restart pantoprazole #essential tremor -restart primidone #IBS?- -restart dicyclomine #Hx of depression- -pt states she doesn't take medications for this anymore -held fluoxetine, trazodone, librium DVT: Lovenjox PPI: protonix 40mg PO daily Dispo: Pt stable, resume home medications. Recheck BMP. Otherwise pt stable for DC to home from medical standpoint. Will await surg for final DC recs. Addendum - Attending - Attending Attestation Date/Time: 09/17/18 4464 I personally evaluated the patient and discussed the management with Dr. Carrion. I agree with the History, Examination, Assessment and Plan documented above with any addition or exceptions noted below. Overall doing quite well. No cp/sob, no KIM. Bowels are back to normal, no n/v /f/c. On exam her lungs still have bibasilar crackles but these are improved from yesterday. Anticipate d/c today.
[2018-09-17 09:29] LABS: Anion Gap 14 mmol/L (10-20); BUN (Urea Nitrogen) 5 mg/dL (9.8-20.1); Calc. Creatinine Clearance 85 mL/min (70-130); Calcium 10.2 mg/dL (7.8-10.44); Carbon Dioxide 36 mmol/L (23-31); Chloride 93 mmol/L (98-107); Estimated GFR-MDRD 84; Glucose 146 mg/dL (83-110); Potassium 3.3 mmol/L (3.5-5.1); Sodium 140 mmol/L (136-145)
--- NOTE | 2018-09-17 11:32 | PRG ---
DATE OF SERVICE: SUBJECTIVE: The patient said she has some burning pain in her abdomen. She is tolerating liquids well. She is passing flatus. She had a bowel movement. OBJECTIVE: VITAL SIGNS: Temperature 98, pulse 77, blood pressure 138/76. GENERAL: She is awake, alert, does not appear to be in any distress. LUNGS: Clear. ABDOMEN: Soft, nondistended. No significant tenderness. The incisions are healing well. Good urine output. ASSESSMENT: Multiple medical problems. PLAN: Awaiting report from echocardiogram. Job ID: [id number]
[2018-09-17] MEDS ORDERED: Potassium Chloride 20 MEQ TAB PO SCH ×2 (12:15→13:15)
[2018-09-17 15:52] VITALS: BP 125/78; TEMP 98.3
[2018-09-17] MEDS ORDERED: Magnesium Oxide 400 MG TAB PO SCH (21:00)
[2018-09-18] MEDS ORDERED: Potassium Chloride 20 MEQ TAB PO SCH (08:00)
--- NOTE | 2018-09-21 14:57 | EKG ---
Test Reason : ER Blood Pressure : / mmHG Vent. Rate : 107 BPM Atrial Rate : 107 BPM P-R Int : 132 ms QRS Dur : 086 ms QT Int : 322 ms P-R-T Axes : 047 -44 019 degrees QTc Int : 429 ms Sinus tachycardia Left axis deviation Possible Anterior infarct , age undetermined Abnormal ECG Confirmed by MACKENZIE FERRIS, ESHA ([id number]), non linear editor DAVION SHANNON ([id number]) on 09/21/2018 2:57:23 PM Referred By: Shanti Strong Confirmed By:ESHA MANN MD
== END 2018-09-17 18:41 | disposition home or self-care (01) ==
LOC: ERS 22:37 → SURG B 09-15 00:50
PROVIDERS: ADMIT Surgery; ATTEND Surgery
DX: K59.00 Constipation, unspecified (principal); E87.70 Fluid overload, unspecified; E78.5 Hyperlipidemia, unspecified; J98.6 Disorders of diaphragm; J96.21 Acute and chronic respiratory failure with hypoxia; M19.90 Unspecified osteoarthritis, unspecified site; K21.9 Gastro-esophageal reflux disease without esophagitis; R32 Unspecified urinary incontinence; F32.9 Major depressive disorder, single episode, unspecified; I11.0 Hypertensive heart disease with heart failure; I50.9 Heart failure, unspecified; R79.1 Abnormal coagulation profile; E66.01 Morbid (severe) obesity due to excess calories; Z68.33 Body mass index [BMI] 33.0-33.9, adult; Z79.899 Other long term (current) drug therapy; Z88.5 Allergy status to narcotic agent; Z88.8 Allergy status to other drugs, medicaments and biological substances; Z99.81 Dependence on supplemental oxygen; Z98.890 Other specified postprocedural states
CPT/HCPCS: 51701; 71045; 71275; 74177; 80048; 80053; 81003; 83605; 83690; 83735; 83880; 84484 ×2; 85025; 85379; 87040 ×2; 87086; 93005 ×2; 93306; 93970; 94640 ×4; 96361 ×2; 96372 ×2; 96374; 96375 ×2; 96376 ×4; 97116; 97139 ×6; 97530; 99285; G0378 ×4; 36415; 93010; A4353; J1650; J1940; J2405; J2590; J3010; J7620; Q9966